=== PATIENT | female | born 1955 | race Caucasian/White ===

== ENCOUNTER 2020-08-20 21:06 | Inpatient (IN) ==
[2020-08-20] MEDS ORDERED: fentaNYL 100 MCG/2 ML VIAL IV STA (21:23)
[2020-08-20 22:12] LABS: Basophils % 0.2 % (0.0-0.8); Eosinophils % 0.5 % (0.00-10.9); Hematocrit 24.4 VOL% (35.7-47.0); Hemoglobin 6.9 GM/DL (12.0-16.0); Immature Granulocytes % 0.2 %; Immature Granulocytes Absolute 0.01 #; Lymphocytes # 0.6 10*3/uL (1.4-4.0); Lymphocytes % 14.5 % (21.3-54.2); Mean Corpuscular HGB Conc 28.3 GM/DL (32-36); Mean Corpuscular Volume 74.2 FL (87-102); Mean Platelet Volume 10.9 FL (9.6-12.0); Monocytes % 7.1 % (1.7-12.7); Neutrophils % 77.5 % (38.7-73.9); Platelet Count 106 T/CUMM (130-400); Red Blood Count 3.29 MC/CUMM (3.8-5.5); Red Cell Distribution Width 19.2 % (9.3-17.3); White Blood Count 4.1 T/CUMM (4-12)
[2020-08-20 22:25] LABS: INR 1.2; PT Patient Result 12.4 SECS (9.8-11.9); Partial Thromboplastin Time 27.5 SECS (23.9-33.8)
[2020-08-20 22:28] LABS: Albumin 3.1 G/DL (3.4-5.0); Bilirubin,Total 0.5 MG/DL (0.2-1.0); Calcium 8.7 MG/DL (8.5-10.1); Osmolality,Calculated 271.5 MOS/KG (273-304); Potassium 4.2 MMOL/L (3.5-5.1); Total Protein 8.7 G/DL (6.4-8.2)
[2020-08-21] MEDS ORDERED: GLUCAGON 1 MG VIAL IM PRN (01:49)
[2020-08-21] MEDS ORDERED: hydrALAZINE 20 MG/1 ML VIAL IV PRN (01:49)
[2020-08-21] MEDS ORDERED: SODIUM CHLORIDE 0.9% 1,000 ML IV PRN (01:49)
[2020-08-21] MEDS ORDERED: DEXTROSE 50% 25 GM/50 ML VIAL IV PRN ×2 (01:49→15:27)
[2020-08-21] MEDS ORDERED: NICOTINE 21 MG/24 HR PATCH TRANSDERM PRN (01:49)
[2020-08-21] MEDS ORDERED: ACETAMINOPHEN 325 MG TABLET PO PRN (01:49)
[2020-08-21 01:58] LABS: VBG Base Excess -1.5 MEQ/L (0-4); VBG HCO3 23.2 MEQ/L (24-28); VBG PH 7.49; VBG Total CO2 20.2 MMOL/L
[2020-08-21] MEDS ORDERED: SODIUM CHLORIDE 0.9% 1,000 ML IV SCH (02:00)
[2020-08-21] MEDS: ONDANSETRON 4 MG/2 ML VIAL IV PRN ×2 (03:45→21:03)
[2020-08-21] MEDS: MORPHINE 4 MG/1 ML VIAL IV PRN ×2 (03:45→21:04)
[2020-08-21] MEDS: INSULIN REGULAR 100 UNIT/ML SUBCUT SCH ×4 (08:39→21:03)
[2020-08-21 09:31] LABS: Basophils % 0.3 % (0.0-0.8); Eosinophils % 0.3 % (0.00-10.9); Hematocrit 22.8 VOL% (35.7-47.0); Hemoglobin 6.9 GM/DL (12.0-16.0); Immature Granulocytes % 0.3 %; Immature Granulocytes Absolute 0.01 #; Lymphocytes # 0.7 10*3/uL (1.4-4.0); Lymphocytes % 19.6 % (21.3-54.2); Mean Corpuscular HGB Conc 30.3 GM/DL (32-36); Mean Corpuscular Volume 74.3 FL (87-102); Mean Platelet Volume 10.8 FL (9.6-12.0); Monocytes % 9.4 % (1.7-12.7); Neutrophils % 70.1 % (38.7-73.9); Red Blood Count 3.07 MC/CUMM (3.8-5.5); Red Cell Distribution Width 19.4 % (9.3-17.3); White Blood Count 3.4 T/CUMM (4-12)
[2020-08-21 09:32] LABS: Platelet Count 88 T/CUMM (130-400)
[2020-08-21 09:51] LABS: Calcium 8.3 MG/DL (8.5-10.1); Osmolality,Calculated 269.5 MOS/KG (273-304); Potassium 3.9 MMOL/L (3.5-5.1)
[2020-08-21] MEDS: CALCIUM (CARBONATE)/VITAMIN D 600 MG-400 UNIT TABLET PO SCH ×2 (15:44→21:03)
[2020-08-21 19:04] LABS: Hematocrit 27.1 VOL% (35.7-47.0); Hemoglobin 7.9 GM/DL (12.0-16.0)
[2020-08-22 04:18] LABS: Basophils % 0.2 % (0.0-0.8); Eosinophils # 0.1 10*3/uL (0.0-0.87); Eosinophils % 1.2 % (0.00-10.9); Immature Granulocytes % 0.2 %; Immature Granulocytes Absolute 0.01 #; Lymphocytes # 0.8 10*3/uL (1.4-4.0); Lymphocytes % 17.6 % (21.3-54.2); Mean Corpuscular HGB Conc 29.6 GM/DL (32-36); Mean Corpuscular Volume 77.8 FL (87-102); Mean Platelet Volume 10.9 FL (9.6-12.0); Monocytes % 8.8 % (1.7-12.7); Red Cell Distribution Width 19.1 % (9.3-17.3); White Blood Count 4.3 T/CUMM (4-12)
[2020-08-22 04:25] LABS: Platelet Count 97 T/CUMM (130-400); Red Blood Count 3.47 MC/CUMM (3.8-5.5)
[2020-08-22 04:43] LABS: Hypochromasia 2+; Microcytosis 1+; Ovalocytes Slight
[2020-08-22 04:44] LABS: Platelet Estimate Decreased
[2020-08-22] MEDS: ONDANSETRON 4 MG/2 ML VIAL IV PRN ×2 (05:10→13:45)
[2020-08-22] MEDS: MORPHINE 4 MG/1 ML VIAL IV PRN ×2 (05:11→13:44)
[2020-08-22] MEDS ORDERED: propofoL 200 MG/20 ML VIAL IV ONE (06:43)
[2020-08-22] MEDS ORDERED: MIDAZOLAM 2 MG/2 ML VIAL ONE (06:43)
[2020-08-22] MEDS ORDERED: LIDOCAINE 2% 5 ML VIAL ONE (06:43)
[2020-08-22] MEDS ORDERED: BUPIVACAINE SPINAL 0.75% 2 ML AMP SPINAL ONE (06:43)
[2020-08-22] MEDS ORDERED: fentaNYL 100 MCG/2 ML VIAL ONE (06:44)
[2020-08-22] MEDS ORDERED: KETAMINE 500 MG/10 ML VIAL ONE (06:44)
[2020-08-22] MEDS ORDERED: LACTATED RINGERS 1,000 ML IV SCH (07:00)
[2020-08-22] MEDS ORDERED: ceFAZolin 1,000 MG VIAL ONE (07:45)
[2020-08-22] MEDS ORDERED: ALBUMIN 5% 12.5 GM/250 ML VIAL IV ONE (07:56)
[2020-08-22] MEDS ORDERED: DEXAMETHASONE 4 MG/1 ML VIAL ONE (08:23)
[2020-08-22] MEDS ORDERED: BUPIVACAINE 0.5% 50 ML VIAL ONE (08:23)
[2020-08-22] MEDS: INSULIN REGULAR 100 UNIT/ML SUBCUT SCH ×4 (08:47→20:38)
[2020-08-22] MEDS ORDERED: ACETAMINOPHEN 1,000 MG/100 ML VIAL IV ONE (09:32)
[2020-08-22 10:11] LABS: Basophils % 0.2 % (0.0-0.8); Eosinophils % 0.5 % (0.00-10.9); Hematocrit 25.8 VOL% (35.7-47.0); Hemoglobin 7.7 GM/DL (12.0-16.0); Immature Granulocytes % 0.7 %; Immature Granulocytes Absolute 0.03 #; Lymphocytes # 0.6 10*3/uL (1.4-4.0); Lymphocytes % 13.3 % (21.3-54.2); Mean Corpuscular HGB Conc 29.8 GM/DL (32-36); Mean Corpuscular Volume 77.9 FL (87-102); Mean Platelet Volume 10.6 FL (9.6-12.0); Monocytes % 6.5 % (1.7-12.7); Neutrophils % 78.8 % (38.7-73.9); Red Blood Count 3.31 MC/CUMM (3.8-5.5); Red Cell Distribution Width 19.1 % (9.3-17.3); White Blood Count 4.1 T/CUMM (4-12)
[2020-08-22 10:12] LABS: Platelet Count 89 T/CUMM (130-400)
[2020-08-22 10:29] LABS: Hypochromasia 2+; Microcytosis 1+; Ovalocytes Slight
[2020-08-22 10:30] LABS: Polychromasia Slight
[2020-08-22 10:31] LABS: Platelet Estimate Decreased
[2020-08-22] MEDS: ASPIRIN 325 MG TABLET PO SCH (11:31)
[2020-08-22] MEDS: CALCIUM (CARBONATE)/VITAMIN D 600 MG-400 UNIT TABLET PO SCH ×2 (11:31→20:39)
[2020-08-22] MEDS: ceFAZolin 2,000 MG in PREMIX 1 EACH IV SCH ×2 (13:24→21:20)
[2020-08-22 18:23] LABS: Hematocrit 24.7 VOL% (35.7-47.0); Hemoglobin 7.2 GM/DL (12.0-16.0); Immature Granulocytes % 0.6 %; Immature Granulocytes Absolute 0.03 #; Lymphocytes # 0.6 10*3/uL (1.4-4.0); Lymphocytes % 11.1 % (21.3-54.2); Mean Corpuscular HGB Conc 29.1 GM/DL (32-36); Mean Corpuscular Volume 78.9 FL (87-102); Monocytes % 6.4 % (1.7-12.7); Neutrophils % 81.9 % (38.7-73.9); Platelet Count 98 T/CUMM (130-400); Red Blood Count 3.13 MC/CUMM (3.8-5.5); Red Cell Distribution Width 19.4 % (9.3-17.3); White Blood Count 5.3 T/CUMM (4-12)
[2020-08-22] MEDS: diphenhydrAMINE CAP 25 MG CAPSULE PO PRN (20:39)
[2020-08-22] MEDS: oxyCODONE/ACETAMINOPHEN 5-325 MG TABLET PO PRN (20:39)
[2020-08-23 05:57] LABS: Basophils % 0.2 % (0.0-0.8); Eosinophils # 0.1 10*3/uL (0.0-0.87); Eosinophils % 1.2 % (0.00-10.9); Hematocrit 23.1 VOL% (35.7-47.0); Immature Granulocytes % 0.4 %; Immature Granulocytes Absolute 0.02 #; Lymphocytes # 1.2 10*3/uL (1.4-4.0); Lymphocytes % 24.2 % (21.3-54.2); Mean Corpuscular HGB Conc 30.3 GM/DL (32-36); Mean Corpuscular Volume 78.3 FL (87-102); Mean Platelet Volume 11.2 FL (9.6-12.0); Monocytes % 11.5 % (1.7-12.7); Neutrophils % 62.5 % (38.7-73.9); Platelet Count 104 T/CUMM (130-400); Red Blood Count 2.95 MC/CUMM (3.8-5.5); Red Cell Distribution Width 19.5 % (9.3-17.3); White Blood Count 5.1 T/CUMM (4-12)
[2020-08-23 06:11] LABS: Calcium 8.4 MG/DL (8.5-10.1); Osmolality,Calculated 266.7 MOS/KG (273-304)
[2020-08-23] MEDS ORDERED: SODIUM CHLORIDE 0.9% 1,000 ML IV PRN (07:22)
[2020-08-23] MEDS: oxyCODONE/ACETAMINOPHEN 5-325 MG TABLET PO PRN ×2 (08:38→20:56)
[2020-08-23] MEDS: ASPIRIN 325 MG TABLET PO SCH (08:38)
[2020-08-23] MEDS: CALCIUM (CARBONATE)/VITAMIN D 600 MG-400 UNIT TABLET PO SCH ×2 (08:38→20:55)
[2020-08-23] MEDS: PANTOPRAZOLE 40 MG TABLET PO SCH (08:38)
[2020-08-23] MEDS: INSULIN REGULAR 100 UNIT/ML SUBCUT SCH ×4 (08:41→20:57)
[2020-08-23] MEDS: MORPHINE 4 MG/1 ML VIAL IV PRN (09:34)
[2020-08-23] MEDS: ONDANSETRON 4 MG/2 ML VIAL IV PRN (09:34)
[2020-08-23 15:37] LABS: Hematocrit 24.8 VOL% (35.7-47.0); Hemoglobin 7.5 GM/DL (12.0-16.0)
[2020-08-23] MEDS: diphenhydrAMINE CAP 25 MG CAPSULE PO PRN (20:56)
[2020-08-24 05:05] LABS: Basophils % 0.2 % (0.0-0.8); Eosinophils # 0.1 10*3/uL (0.0-0.87); Eosinophils % 1.2 % (0.00-10.9); Hematocrit 23.3 VOL% (35.7-47.0); Immature Granulocytes % 0.2 %; Immature Granulocytes Absolute 0.01 #; Lymphocytes # 1.3 10*3/uL (1.4-4.0); Mean Corpuscular HGB Conc 31.3 GM/DL (32-36); Mean Corpuscular Volume 77.9 FL (87-102); Mean Platelet Volume 10.6 FL (9.6-12.0); Monocytes % 1.2 % (1.7-12.7); Neutrophils % 65.2 % (38.7-73.9); Red Cell Distribution Width 19.7 % (9.3-17.3); White Blood Count 4.1 T/CUMM (4-12)
[2020-08-24 05:08] LABS: Hemoglobin 7.3 GM/DL (12.0-16.0); Platelet Count 81 T/CUMM (130-400); Red Blood Count 2.99 MC/CUMM (3.8-5.5)
[2020-08-24 05:19] LABS: Calcium 8.1 MG/DL (8.5-10.1); Osmolality,Calculated 272.4 MOS/KG (273-304); Potassium 4.1 MMOL/L (3.5-5.1)
[2020-08-24 05:27] LABS: Anisocytosis 1+; Hypochromasia 1+; Microcytosis 1+
[2020-08-24 05:28] LABS: Ovalocytes Slight
[2020-08-24 05:29] LABS: Platelet Estimate Adequate
[2020-08-24] MEDS: INSULIN REGULAR 100 UNIT/ML SUBCUT SCH ×4 (08:56→21:32)
[2020-08-24] MEDS: PANTOPRAZOLE 40 MG TABLET PO SCH (08:57)
[2020-08-24] MEDS: CALCIUM (CARBONATE)/VITAMIN D 600 MG-400 UNIT TABLET PO SCH ×2 (08:57→20:44)
[2020-08-24] MEDS: ASPIRIN 325 MG TABLET PO SCH (08:57)
[2020-08-24] MEDS: oxyCODONE/ACETAMINOPHEN 5-325 MG TABLET PO PRN ×2 (09:05→20:44)
[2020-08-24] MEDS: MAGNESIUM HYDROXIDE SUSP 30 ML UDCUP PO PRN (09:07)
[2020-08-24] MEDS: SODIUM CHLORIDE 0.9% 1,000 ML IV SCH (11:51)
[2020-08-24] MEDS: FERROUS SULFATE 325 MG TABLET PO SCH (16:39)
[2020-08-25] MEDS: SODIUM CHLORIDE 0.9% 1,000 ML IV SCH (05:09)
[2020-08-25 05:49] LABS: Basophils % 0.3 % (0.0-0.8); Eosinophils # 0.1 10*3/uL (0.0-0.87); Eosinophils % 1.5 % (0.00-10.9); Hematocrit 23.3 VOL% (35.7-47.0); Hemoglobin 7.2 GM/DL (12.0-16.0); Immature Granulocytes % 0.6 %; Immature Granulocytes Absolute 0.02 #; Lymphocytes # 0.8 10*3/uL (1.4-4.0); Lymphocytes % 23.9 % (21.3-54.2); Mean Corpuscular HGB Conc 30.9 GM/DL (32-36); Mean Corpuscular Volume 79.5 FL (87-102); Mean Platelet Volume 10.4 FL (9.6-12.0); Monocytes % 10.4 % (1.7-12.7); Neutrophils % 63.3 % (38.7-73.9); Platelet Count 94 T/CUMM (130-400); Red Blood Count 2.93 MC/CUMM (3.8-5.5); Red Cell Distribution Width 20.4 % (9.3-17.3); White Blood Count 3.4 T/CUMM (4-12)
[2020-08-25 06:13] LABS: Calcium 8.1 MG/DL (8.5-10.1); Osmolality,Calculated 273.2 MOS/KG (273-304); Potassium 4.2 MMOL/L (3.5-5.1)
[2020-08-25 06:18] LABS: Hypochromasia 1+; Microcytosis Slight; Platelet Estimate Decreased
[2020-08-25] MEDS: INSULIN REGULAR 100 UNIT/ML SUBCUT SCH ×4 (09:14→21:48)
[2020-08-25] MEDS: PANTOPRAZOLE 40 MG TABLET PO SCH (09:15)
[2020-08-25] MEDS: oxyCODONE/ACETAMINOPHEN 5-325 MG TABLET PO PRN ×2 (09:15→21:45)
[2020-08-25] MEDS: FERROUS SULFATE 325 MG TABLET PO SCH ×2 (09:15→16:59)
[2020-08-25] MEDS: CALCIUM (CARBONATE)/VITAMIN D 600 MG-400 UNIT TABLET PO SCH ×2 (09:15→21:04)
[2020-08-25] MEDS: ASPIRIN 325 MG TABLET PO SCH (09:16)
[2020-08-25] MEDS: MAGNESIUM HYDROXIDE SUSP 30 ML UDCUP PO PRN (09:21)
[2020-08-26] MEDS: SODIUM CHLORIDE 0.9% 1,000 ML IV SCH ×2 (02:30→21:57)
[2020-08-26 06:54] LABS: Basophils % 0.3 % (0.0-0.8); Eosinophils # 0.1 10*3/uL (0.0-0.87); Eosinophils % 1.8 % (0.00-10.9); Hematocrit 24.1 VOL% (35.7-47.0); Hemoglobin 7.2 GM/DL (12.0-16.0); Immature Granulocytes % 0.6 %; Immature Granulocytes Absolute 0.02 #; Lymphocytes # 0.8 10*3/uL (1.4-4.0); Lymphocytes % 24.1 % (21.3-54.2); Mean Corpuscular HGB Conc 29.9 GM/DL (32-36); Mean Corpuscular Volume 80.9 FL (87-102); Mean Platelet Volume 10.6 FL (9.6-12.0); Monocytes % 10.1 % (1.7-12.7); Neutrophils % 63.1 % (38.7-73.9); Platelet Count 107 T/CUMM (130-400); Red Blood Count 2.98 MC/CUMM (3.8-5.5); Red Cell Distribution Width 20.5 % (9.3-17.3); White Blood Count 3.4 T/CUMM (4-12)
[2020-08-26 07:28] LABS: Eosinophils 3 % (0-10); Hypochromasia 2+; Lymphocytes 23 % (20-55); Platelet Estimate Decreased; Segmented Neutrophils 65 % (50-85); Total Cells Counted 100
[2020-08-26] MEDS: FERROUS SULFATE 325 MG TABLET PO SCH ×2 (09:27→17:13)
[2020-08-26] MEDS: CALCIUM (CARBONATE)/VITAMIN D 600 MG-400 UNIT TABLET PO SCH ×2 (09:27→21:53)
[2020-08-26] MEDS: PANTOPRAZOLE 40 MG TABLET PO SCH (09:27)
[2020-08-26] MEDS: ASPIRIN 325 MG TABLET PO SCH (09:27)
[2020-08-26] MEDS: INSULIN REGULAR 100 UNIT/ML SUBCUT SCH ×4 (09:27→21:53)
[2020-08-27 07:51] LABS: Basophils % 0.3 % (0.0-0.8); Eosinophils # 0.1 10*3/uL (0.0-0.87); Hemoglobin 7.1 GM/DL (12.0-16.0); Immature Granulocytes % 0.7 %; Immature Granulocytes Absolute 0.02 #; Lymphocytes # 0.7 10*3/uL (1.4-4.0); Lymphocytes % 23.2 % (21.3-54.2); Mean Corpuscular HGB Conc 29.6 GM/DL (32-36); Mean Corpuscular Volume 81.4 FL (87-102); Mean Platelet Volume 10.3 FL (9.6-12.0); Monocytes % 8.9 % (1.7-12.7); Neutrophils % 64.9 % (38.7-73.9); Platelet Count 107 T/CUMM (130-400); Red Blood Count 2.95 MC/CUMM (3.8-5.5); Red Cell Distribution Width 21.2 % (9.3-17.3)
[2020-08-27 08:09] LABS: Calcium 8.1 MG/DL (8.5-10.1); Osmolality,Calculated 267.5 MOS/KG (273-304); Potassium 4.3 MMOL/L (3.5-5.1)
[2020-08-27 08:26] LABS: Band Neutrophils 2 % (0-10); Eosinophils 2 % (0-10); Lymphocytes 24 % (20-55); Segmented Neutrophils 63 % (50-85); Total Cells Counted 100
[2020-08-27 08:27] LABS: Anisocytosis 1+; Hypochromasia Slight; Ovalocytes Few; Platelet Estimate Adequate; Poikilocytosis 1+; Smudge Cells Few; Tear Drop Cells Few
[2020-08-27] MEDS: ASPIRIN 325 MG TABLET PO SCH (09:05)
[2020-08-27] MEDS: FERROUS SULFATE 325 MG TABLET PO SCH ×2 (09:05→17:28)
[2020-08-27] MEDS: INSULIN REGULAR 100 UNIT/ML SUBCUT SCH ×4 (09:05→20:56)
[2020-08-27] MEDS: CALCIUM (CARBONATE)/VITAMIN D 600 MG-400 UNIT TABLET PO SCH ×2 (09:05→20:48)
[2020-08-27] MEDS: PANTOPRAZOLE 40 MG TABLET PO SCH (09:05)
[2020-08-27] MEDS: oxyCODONE/ACETAMINOPHEN 5-325 MG TABLET PO PRN ×2 (09:21→21:33)
[2020-08-27] MEDS: SODIUM CHLORIDE 0.9% 1,000 ML IV SCH (14:46)
[2020-08-28] MEDS: SODIUM CHLORIDE 0.9% 1,000 ML IV SCH (07:27)
[2020-08-28] MEDS: oxyCODONE/ACETAMINOPHEN 5-325 MG TABLET PO PRN (08:50)
[2020-08-28] MEDS: INSULIN REGULAR 100 UNIT/ML SUBCUT SCH (10:07)
[2020-08-28] MEDS: FERROUS SULFATE 325 MG TABLET PO SCH (10:08)
[2020-08-28] MEDS: ASPIRIN 325 MG TABLET PO SCH (10:08)
[2020-08-28] MEDS: PANTOPRAZOLE 40 MG TABLET PO SCH (10:08)
[2020-08-28] MEDS: CALCIUM (CARBONATE)/VITAMIN D 600 MG-400 UNIT TABLET PO SCH (10:08)
[2020-08-28 11:30] VITALS: BP 134/73
== END 2020-08-28 12:11 | disposition swing bed (61) | DRG 481 ==
LOC: EDUNIT# → EDBD → N.ED 21:06 → N.EDINP 08-21 01:50 → SUATTDRO 08-21 01:50 → N.3E 08-21 03:13
PROVIDERS: ADMIT Internal Medicine; ATTEND Emergency Medicine